=== PATIENT | male | born 1995 | race Caucasian/White ===

== ENCOUNTER 2017-01-26 22:23 | Emergency (ER) | payer OTHER ==
[~2017-01-26] VITALS: Ht 170.2 cm; Wt 70.5 kg
[2017-01-26] MEDS ORDERED: ALLE60TA69 PO (22:32)
[2017-01-26] MEDS ORDERED: BENA25TA10 PO (22:32)
[2017-01-27] MEDS ORDERED: IPRATROPIUM 0.5MG/ALBUTEROL 2.5MG INH SOL UD 3ML (DUONEB)(J7620) NEB ONE (00:30)
[2017-01-27 01:05] VITALS: BP 136/77
--- NOTE | 2017-01-27 08:16 | REP ---
Chest one-view HISTORY: Chest pain Comparison: None The lungs are clear. The heart is normal in size. The pulmonary vasculature is normal in appearance. Impression: No acute disease. Signed by Jay Esposito MD 01/27/2017 08:08 A
== END 2017-01-27 01:14 | disposition home or self-care (01) ==
LOC: M ED 22:23
DX: J06.9 Acute upper respiratory infection, unspecified (principal)

== ENCOUNTER 2017-09-11 21:14 | Emergency (ER) | payer OTHER | END 2017-09-11 23:44 | disposition home or self-care (01) | LOC: M ED 21:14 | DX: S63.642A Sprain of metacarpophalangeal joint of left thumb, initial encounter (principal); W19.XXXA Unspecified fall, initial encounter; Y92.9 Unspecified place or not applicable; Y93.9 Activity, unspecified; Y99.1 Military activity | CPT/HCPCS: 73130 ==

== ENCOUNTER 2019-03-24 06:32 | Emergency (ER) | payer OTHER ==
[~2019-03-24] VITALS: Ht 172.7 cm; Wt 70.5 kg
[~2019-03-24 06:32] MED LIST: ALLE60TA69 PO; BENA25TA10 PO
[2019-03-24] MEDS ORDERED: ACET-908 PO (06:38)
[2019-03-24] MEDS ORDERED: MUCI600T31 PO (06:38)
[2019-03-24] MEDS ORDERED: IBUPROFEN 600 MG TAB PO ONE (07:15)
[2019-03-24] MEDS ORDERED: ACETAMINOPHEN 500 MG TAB PO ONE (07:15)
[2019-03-24 07:46] LABS: INFLUENZA A AMPLIFICATION NEGATIVE (NEGATIVE); INFLUENZA B AMPLIFICATION POSITIVE (NEGATIVE)
[2019-03-24] MEDS ORDERED: ONDA4TAB6 PO (07:51)
[2019-03-24 07:59] VITALS: BP 142/58
== END 2019-03-24 08:06 | disposition home or self-care (01) ==
LOC: M ED 06:32
DX: J10.89 Influenza due to other identified influenza virus with other manifestations (principal)